=== PATIENT | female | born 1950 | race Caucasian/White ===

== ENCOUNTER → 2021-10-08 | Outpatient (CLI) | payer MEDICARE ==
[~2021-10-08] VITALS: Ht 157.5 cm; Wt 47.7 kg
[2021-10-08 17:05] VITALS: BP 102/58
[2021-10-08 17:30] VITALS: BP 110/60
[2021-10-08 18:02] VITALS: BP 107/60
[2021-10-08 18:24] VITALS: BP 111/83
== END ==
LOC: AMSURD 13:51
DX: U07.1 COVID-19 (principal); J98.4 Other disorders of lung
CPT/HCPCS: M0247; Q0247